=== PATIENT | male | born 1995 ===

== ENCOUNTER 2022-12-23 16:07 | Emergency (ER) | payer BC ==
[~2022-12-23] VITALS: Ht 175.3 cm; Wt 72.0 kg
[2022-12-23 16:14] VITALS: BP 133/83
[2022-12-23 16:27] VITALS: BP 131/82
[2022-12-23 16:35] VITALS: BP 121/69
[2022-12-23 16:43] LABS: URINE BILIRUBIN - DIPSTICK Negative (NEGATIVE); URINE BLOOD DIPSTICK Trace-intact (NEGATIVE); URINE GLUCOSE - DIPSTICK >=1000 mg/dL (NEGATIVE); URINE KETONE Negative (NEGATIVE); URINE LEUK ESTERASE Negative (NEGATIVE); URINE NITRITE - DIPSTICK Negative (Negative); URINE PROTEIN - DIPSTICK Negative (NEG-TRACE); URINE SPECIFIC GRAVITY 1.015; URINE UROBILINOGEN - DIPSTICK 0.2 E.U./dL (0.2)
[2022-12-23 16:43] LABS: BASO% 0.2 % (0-3); HEMATOCRIT 44.4 % (39.0-50.0); HEMOGLOBIN 16.2 g/dl (14.0-18.0); IMMATURE GRANULOCYTES 0.2 % (0.0-5.0); LYMPH% 19.2 % (15-41); MEAN CELL VOLUME 89.7 fL CALC (80.0-100.0); MEAN CORPUSCULAR HGB 32.7 pG CALC (26.0-32.0); MEAN CORPUSCULAR HGB CONC 36.5 g/dL CAL (32.0-36.0); MONO% 7.5 % (2-13); NEUT# 4.25 thou/uL (1.82-7.42); NEUT% 72.9 % (42-76); RED BLOOD COUNT 4.95 mill/uL (4.70-6.10); RED CELL DISTRI WIDTH 11.8 % (11.5-15.5)
[2022-12-23 16:44] LABS: URINE COLOR Yellow
[2022-12-23 17:01] VITALS: BP 118/58
[2022-12-23 17:05] LABS: ALBUMIN 4.3 g/dL (3.2-5.0); ALKALINE PHOSPHATASE 50 u/l (38-126); BILIRUBIN, TOTAL 0.8 mg/dL (0.2-1.3); BUN 17 mg/dL (9-20); BUN/CREATININE RATIO 17 (12-20 (CALC)); CHLORIDE 101 mmol/l (95-108); GFR FOR AFR.AMER. > 60 ML/MIN (>=60 (CALC)); GFR OTHER RACES > 60 ML/MIN (>=60 (CALC)); LIPASE 197 u/l (23-300); POTASSIUM 4.1 mmol/l (3.5-5.1); SGOT/AST 28 u/l (17-59); TOTAL PROTEIN 7.2 g/dL (6.3-8.2)
[2022-12-23 17:07] LABS: ANION GAP 13 (6-22 (CALC)); CARBON DIOXIDE 20 mmol/l (22-30); SODIUM 130 mmol/l (137-146)
[2022-12-23] MEDS ORDERED: METFORMIN HCL500 M1 PO (17:53)
[2022-12-23 18:27] VITALS: BP 122/82
[2022-12-23 18:32] VITALS: BP 122/82
== END 2022-12-23 18:33 | disposition home or self-care (01) | DRG 639 ==
LOC: ED 16:07
PROVIDERS: Family Medicine
DX: E11.65 Type 2 diabetes mellitus with hyperglycemia (principal); K75.4 Autoimmune hepatitis

== ENCOUNTER 2023-01-06 14:23 | Emergency (ER) | payer OTHER, BC ==
[~2023-01-06] VITALS: Ht 175.3 cm; Wt 68.0 kg
[~2023-01-06 14:23] MED LIST: METFORMIN HCL500 M1 PO
[2023-01-06 14:38] VITALS: BP 124/74
[2023-01-06 14:45] VITALS: BP 127/69
[2023-01-06] MEDS ORDERED: IMURAN50 MG PO (14:47)
[2023-01-06 15:00] VITALS: BP 122/73
[2023-01-06] MEDS ORDERED: BACTRIM DS1 TAB PO (15:00)
[2023-01-06 15:15] VITALS: BP 111/68
== END 2023-01-06 15:30 | disposition home or self-care (01) | DRG 605 ==
LOC: ED 14:23
DX: S91.331A Puncture wound without foreign body, right foot, initial encounter (principal); W45.0XXA Nail entering through skin, initial encounter; Y92.89 Other specified places as the place of occurrence of the external cause; Y99.0 Civilian activity done for income or pay